=== PATIENT | male | born 1995 | race Caucasian/White ===

== ENCOUNTER 2023-10-10 09:02 | Outpatient (CLI) | payer OTHER | END 2023-10-10 09:09 | disposition home or self-care (01) | LOC: TOM 09:02 | PROVIDERS: ATTEND Family Medicine | DX: M54.50 Low back pain, unspecified (principal); M54.2 Cervicalgia ==

== ENCOUNTER 2024-10-03 08:34 | Outpatient (CLI) | payer OTHER | END 2024-10-03 08:41 | disposition home or self-care (01) | LOC: RAD 08:34 | PROVIDERS: ATTEND Family Medicine | DX: S89.91XA Unspecified injury of right lower leg, initial encounter (principal); X58.XXXA Exposure to other specified factors, initial encounter; Y93.9 Activity, unspecified; Y92.9 Unspecified place or not applicable; Y99.9 Unspecified external cause status ==